=== PATIENT | female | born 1990 | race Two or more races ===

== ENCOUNTER 2019-02-25 13:30 | Outpatient (CLI) | payer OTHER ==
--- NOTE | 2019-02-25 14:58 | Ultrasound Report ---
Reason: CYSTS Procedure Date: 02/25/2019 Accession Number: [id number] / [id number] Procedure: US - Breast Unilateral Complete CPT Code: FULL RESULT: EXAM: Breast Unilateral Complete, Breast Unilateral Complete DATE: 02/25/2019 2:48 PM CLINICAL HISTORY: CYSTS COMPARISON: None. TECHNIQUE: Bilateral whole breast ultrasound was performed with additional attention to the area of clinical concern in the right breast.. Color Doppler was employed as appropriate. FINDINGS: Multiple cysts are identified in the right breast the largest of which measures 1.1 x 2.9 x 3.1 cm and corresponds to the patient's area of tenderness. These cysts appear typically benign with no solid soft tissue component and sonographic features of increased through transmission, imperceptibly thin wall and well demarcated borders. In the left breast, clusters of microcysts with typically benign appearance are identified. Additionally, in the left breast retroareolar region a focally prominent hypoechoic area is identified which on real-time imaging is demonstrated to be contiguous with nearby prominent ducts. No internal vascularity or definite soft tissue component is detected identifying this area as a prominent focus of ductal ectasia within the normal breast parenchyma pattern. Additionally, the finding is wider than tall, appears to respect surrounding architecture and has well demarcated borders where it is not confluent with the surrounding ductal system. IMPRESSION: Benign findings RECOMMENDATION: Clinical correlation. BIRADS CATEGORY 2: Benign findings RADIA
== END 2019-02-25 13:31 | disposition home or self-care (01) ==
LOC: DI 13:30
PROVIDERS: ATTEND Internal Medicine
DX: N64.4 Mastodynia (principal)
CPT/HCPCS: 76641

== ENCOUNTER 2020-10-01 11:32 | Outpatient (CLI) | payer OTHER ==
--- NOTE | 2020-10-02 12:09 | Ultrasound Report ---
LIMITED ULTRASOUND OF RIGHT BREAST: 10/01/2020 CLINICAL: Palpable right breast lump. Comparison is made to exam dated: 02/25/2019 ultrasound - [facility]. Color flow and real-time ultrasound of the right breast 9 o'clock region were performed. Sullivan scale images of the real-time examination were reviewed. There is a benign 3.7 cm x 3.4 cm x 2.8 cm oval simple cyst with a smooth internal wall in the right breast at 9 o'clock middle depth 3 cm from the nipple. This oval simple cyst is anechoic with a well -defined boundary and posterior acoustic enhancement. This correlates as palpated. Color flow imagi ng demonstrates that there is no vascularity present. IMPRESSION: BENIGN There is no sonographic evidence of malignancy. Right breast palpable abnormality corresponds to a 3.7 cm simple cyst and is benign. Cyst aspiration can be consider for symptomatic relief. Return to screening mammogram schedule. Exam findings were conveyed to the patient. Patient is advised to monitor for significant change. This exam was interpreted at Station ID: [id number]. Electronically Signed By: Benedict Crystal M.D. slc/:10/01/2020 15:34:36 Ultrasound BI-RADS: 2 Benign BI-RADS CATEGORY: (2) - 2 RECOMMENDATION: (ADDMAM) - Recommend additional mammographic views. no recall LATERALITY: (B)
== END 2020-10-01 11:33 | disposition home or self-care (01) ==
LOC: DI 11:32
PROVIDERS: ATTEND Advanced Practice Midwife
DX: N60.01 Solitary cyst of right breast (principal)